=== PATIENT | female | born 1935 | race Caucasian/White ===

== ENCOUNTER 2022-03-31 08:26 | Outpatient (RCR) | payer MEDICARE, SELFPAY ==
--- NOTE | 2022-03-31 12:40 | HP.OTEVAL ---
Patient's Visit Information CECILIA PAYNE is a 86 year old F, referred to Occupational Therapy by SHADY Kaur, with a diagnosis of lymphedema. Date of Evaluation: 03/31/22 Occupational Therapist: Mar Acharya, BRENNAN/Sara, CHT - Subjective This 86 year old female was seen for OT eval with dx of lymphedema BLE. pt states she has had issues for about 10 years- states she has done anything for her legs. pt states she does take a water pill- ( triamterene/hydrochlorothiazid) pt has high blood pressure-. pt sits around a lot- pts spouse says very little walking and sits with legs up in recliner- pt does sleep in her bed at night and notices a decrease in swelling in ankles when she gets up. pt states she just thought her legs were chubby did not really notice feet or ankle swelling- both state legs have been large maybe since she was in her 40 or 50's. - Lymphedema (Circumferential Measure) Mid-foot: right 20cm left 19.5cm Ankle: right 27cm left 28cm Lower calf: right 32cm left 31cm Largest calf: right 49cm left 49cm Below knee: right 51cm left 52cm - Lower Limb Functional Index Lower Extremity Functional Score: 44 - Goals Demonstrate a 20% reduction in edema by d/c: Yes Demonstrate adequate knowledge of self-massage by 2nd week: Yes Demonstrate adequate knowledge skin care/prec by 2nd week: Yes Demonstrate adequate knowledge therapeutic exercises by d/c: Yes Select approp compression garment w/donning/care/wear by d/c: Yes Voice need to replace compression garment every 4-6mo by dc: Yes - Rehabilitation General Assessment: pt demo with minor swelling in feet and ankles and would benefit from OT services 1-2 visits to ed. pt on lymphedema dx and life long mtg. pt and pts spouse demo understanding and agree to POC. Today therapist ed. pt on use of compression socks 15-20mmHg to start with and lymph stimulation ex. pt demo understanding was given paperwork/handouts on compression socks and ex. both would return when they get the compression socks if they have difficult with getting them on. - Anticipated Interventions Education re Diagnosis, Manual Lymph Drainage, Education re Life-long lymphedema Management, Education re Skin Care and Precautions, Education re Self Massage Techniques, Education re Correct Donning Tech,Care&Wearing Sched Comp Garments, Caregiver Training, Home Program - Visit Plan TEXT: Thank you for the opportunity to evaluate your patient. For Medicare and Medicare HMO plans, please review the plan of care and approve it. It will need to be FAXED BACK to us at [phone] for Medicare purposes. Please let me know if there are questions or concerns regarding this plan of care. Physician Signature: Date:
--- NOTE | 2022-07-13 14:56 | HP.OT.NRP ---
CECILIA PAYNE was seen in my office for initial evaluation on 03/31/22. The following Plan of Care was established for this patient: Anticipated Interventions: Education re Diagnosis, Manual Lymph Drainage, Education re Life-long lymphedema Management, Education re Skin Care and Precautions, Education re Self Massage Techniques, Education re Correct Donning Tech,Care&Wearing Sched Comp Garments, Caregiver Training, Home Program This patient was last seen in our office 03/31/22. Pertinent comments regarding their Occupational therapy will appear below: Pt was seen for OT eval only. No further apts scheduled and due to time lapse in services pt d.c at this time. At this point I will be discontinuing this patient from occupational therapy. I would be happy to see this patient again in the future if found appropriate by the physician. Thank you! Mar Acharya, OTR/L, CHT
== END 2022-03-31 19:00 | disposition home or self-care (01) ==
LOC: OT 08:26
PROVIDERS: PCP Nurse Practitioner Family; Referring Provider Nurse Practitioner Family; Visit Provider Nurse Practitioner Family
DX: I89.0 Lymphedema, not elsewhere classified (principal)
CPT/HCPCS: 97166; 97530